=== PATIENT | male | born 1970 | race Caucasian/White ===

== ENCOUNTER 2018-09-08 14:40 | Outpatient (RCR) | payer BC ==
[2018-11-02] MEDS ORDERED: ASPI-586 PO (08:44)
[2018-11-02] MEDS ORDERED: OMEP40CA36 PO (08:44)
[2018-11-02] MEDS ORDERED: METO-387 PO (08:44)
== END 2018-12-07 | disposition home or self-care (01) ==
LOC: CARD 14:40
PROVIDERS: ATTEND Internal Medicine Interventional Cardiology
DX: I47.2 Ventricular tachycardia (principal); R00.2 Palpitations; I10 Essential (primary) hypertension; I49.3 Ventricular premature depolarization; R42 Dizziness and giddiness; N17.9 Acute kidney failure, unspecified
CPT/HCPCS: 93270

== ENCOUNTER → 2018-10-12 | Outpatient (CLI) | payer BC ==
[~2018-10-12] VITALS: Ht 182.9 cm; Wt 97.5 kg
[~2018-10-12] MED LIST: CATHETER FLUSH 10 ML SYR IV PRN; REGADENOSON 0.4 MG/5 ML SYR (LEXISCAN) IV ONE
[2018-10-12 09:11] VITALS: BP 134/91
[2018-10-12 09:12] VITALS: BP 146/96
[2018-10-12 09:13] VITALS: BP 140/101
--- NOTE | 2018-10-12 13:51 | Cardiology Stress Test Report ---
Stress Test Report Type of NM Stress Test: Test Type: LEXISCAN 0.4MG/5ML Date of Procedure/Referring: Date of Procedure: Oct 12, 2018 PCP Gayathri Ling MD Admitting Physician Sánchez Monique DO Indications: Ventricular tachycardia, palpitations, hypertension Baseline Heart Rate: 67 Baseline Blood Pressure: Blood Pressure Systolic: 140 Blood Pressure Diastolic: 101 Baseline EKG: Baseline EKG: sinus rhythm Summary & Conclusion: Summary: The patient was brought to the stress lab after informed consent was taken. Stress test was performed according to the Lexiscan protocol. 0.4 mg of IV Lexiscan was given. Low-grade exercise was performed. Baseline EKG showed sinus rhythm at 67 BPM. Initial blood pressure was 126/84 mmHg. Maximum heart rate was 90 bpm and blood pressure 144/96 mmHg. Patient did not have any chest pain, arrhythmias or ST segment changes during the stress test. 10.94 mCi of Myoview were given for rest imaging and 32.2 mCi of Myoview given for stress imaging. Transient ischemic dilatation score 1.1, EF 59 percent. Normal wall motion. Medium intensity, intermediate size anterior reversible defect. SSS 6, SRS 0, SDS 6. Conclusion: Pharmacological stress test was negative for ischemia. Normal LV function with no wall motion abnormalities. Anterior ischemia, coronary angiography is recommended. Gayathri LING MD Oct 12, 2018 1:51 pm
== END ==
LOC: CARD 08:04
PROVIDERS: ATTEND Internal Medicine Interventional Cardiology
DX: I47.2 Ventricular tachycardia (principal); R00.2 Palpitations; I10 Essential (primary) hypertension; I49.3 Ventricular premature depolarization; R42 Dizziness and giddiness; N17.9 Acute kidney failure, unspecified
CPT/HCPCS: 78452; 93017

== ENCOUNTER → 2018-10-17 | Outpatient (CLI) | payer BC | LOC: CARD 13:51 | PROVIDERS: ATTEND Internal Medicine Interventional Cardiology | DX: I47.2 Ventricular tachycardia (principal); R00.2 Palpitations; I10 Essential (primary) hypertension; I49.3 Ventricular premature depolarization; R42 Dizziness and giddiness; N17.9 Acute kidney failure, unspecified ==

== ENCOUNTER 2018-11-02 07:53 | Day surgery (SDC) | payer BC ==
[2018-11-02] VITALS (8 sets, daily range): BP systolic 114–141; BP diastolic 71–92
[~2018-11-02] VITALS: Ht 182.9 cm; Wt 99.8 kg
[2018-11-02] MEDS ORDERED: NS IV 1000 ML 1,000 ML ONE (08:08)
[2018-11-02] MEDS ORDERED: HEParin (CATH LAB) 2,000 ML IV ONE (08:08)
[2018-11-02] MEDS ORDERED: LIDOCAINE 1% INJ 20 ML 20 ML VIAL ONE (08:08)
[2018-11-02] MEDS ORDERED: NS IV 1000 ML 1,000 ML IV SCH ×2 (08:15→10:41)
[2018-11-02 08:36] LABS: HEMOGLOBIN 16.9 G/DL (13.3-17.7); MEAN PLATELET VOLUME 10.6 FL (7.4-10.4)
[2018-11-02] MEDS ORDERED: METO-387 PO (08:44)
[2018-11-02] MEDS ORDERED: ASPI-586 PO (08:44)
[2018-11-02] MEDS ORDERED: OMEP40CA36 PO (08:44)
[2018-11-02 08:46] LABS: INR 0.9 (0.8-1.4); PROTHROMBIN TIME PATIENT 12.9 SEC (12.2-14.7)
[2018-11-02 08:52] LABS: ALANINE AMINOTRANSFERASE 50 U/L (0-55); ALBUMIN 4.3 GM/DL (3.2-4.5); ALKALINE PHOSPHATASE 46 U/L (40-136); BILIRUBIN,TOTAL 0.9 MG/DL (0.1-1.0); BUN/CREATININE RATIO 18; CALCIUM 9.7 MG/DL (8.5-10.1); CARBON DIOXIDE 26 MMOL/L (21-32); CHLORIDE 108 MMOL/L (98-107); CREATININE SERUM 1.08 MG/DL (0.60-1.30); GFR ESTIMATED > 60; GLUCOSE 106 MG/DL (70-105); SODIUM 145 MMOL/L (135-145); TOTAL PROTEIN 7.6 GM/DL (6.4-8.2)
[2018-11-02] MEDS ORDERED: fentaNYL INJECTION 100 MCG/2 ML AMP ONE (09:30)
[2018-11-02] MEDS ORDERED: MIDAZOLAM 5 MG/5 ML (VERSED) VIAL ONE (09:30)
[2018-11-02] MEDS ORDERED: NITRO DRIP 25000 MCG/D5W 250 ML IV ONE (09:32)
[2018-11-02] MEDS ORDERED: HEParin 1000 UNIT/ML (10ML VIAL) FOR BOLUS ONE (09:32)
[2018-11-02] MEDS ORDERED: VERAPAMIL 5 MG/2 ML (CALAN) VIAL IV ONE (09:33)
--- NOTE | 2018-11-02 10:21 | Cardiac Procedure Note-CS/ASA ---
Pre-Procedure Note Pre-Op Procedure Note H&P Reviewed The H&P was reviewed, patient examined and no changes noted. Date H&P Reviewed: Nov 02, 2018 Time H&P Reviewed: 10:21 Conscious Sedation Pre-Proced Time 10:21 ASA Score 3 For ASA 3 and 4: Consider anesthesia and medical clearance. Also, for patients with a history of failed moderate sedation consider anesthesia. Airway Lungs Heart ASA score ASA 1: a normal healthy patient ASA 2: a patient with a mild systemic disease (mid diabetes, controlled hypertension, obesity ASA 3: a patient with a severe systemic disease that limits activity (angina , COPD, prior Myocardial infarction) ASA 4: a patient with an incapacitating disease that is a constant threat to life (CHF, renal failure) ASA 5: a moribund patient not expected to survive 24 hrs. (ruptured aneurysm) ASA 6: a declared brain- patient whose organs are being harvested. For emergent operations, add the letter E after the classification Mallampati Classification Grade 1 Sedation Plan Analgesia, Amnesia, Plan communicated to team members, Discussed options with patient/fam, Discussed risks with patient/fam The patient is an appropriate candidate to undergo the planned procedure, sedation, and anesthesia. The patient immediately re-assessed prior to indication. Gayathri BAL MD Nov 02, 2018 10:21 am
--- NOTE | 2018-11-02 10:41 | Coronary Angiography Report ---
Coronary Angiography Report DATE OF PROCEDURE: 11/02/18 INDICATION: Chest pain, abnormal nuclear stress test. PREOPERATIVE DIAGNOSIS: Chest pain, abnormal nuclear stress test. POSTOPERATIVE DIAGNOSIS: Patent epicardial coronary arteries. HISTORY: This is a 47-year-old gentleman with chest pain and a nuclear stress test which showed possible anterior ischemia. Therefore, the patient was scheduled for coronary angiography. PROCEDURES PERFORMED: 1.Coronary angiography. 2.Left heart catheterization. COMPLICATIONS: None. SPECIMENS: None. ESTIMATED BLOOD LOSS: 10 mL ANESTHESIA: Conscious sedation ANTICOAGULATION: IV heparin CONTRAST: 66 mL. FLUOROSCOPY: 4.9 minutes. FLOUROSCOPY DOSE: 447 mgy. PROCEDURE DETAILS: The patient is a 47 male and was brought to the lab clerk after informed consent was taken. All the risks and complications were explained in detail; this included the risk of bleeding, vascular damage, stroke , ME and even . The patient was draped and prepped in the usual sterile fashion. Access was gained in the right radial artery with a 6 Swazi sheath. Coronary angiography and left heart catheterization was performed with the Warne catheter. FINDINGS: 1.Left main: Patent. 2.LAD: Patent. Mild slow flow noted. 3.Left circumflex artery: Patent. Mild slow flow noted. 4.RCA: Patent. 5.Left heart catheterization: LV pressure 121/21 mmHg. LVEDP 35 mmHg. Aortic pressure 129/95 mmHg. Normal LV function with no wall motion abnormalities. CONCLUSIONS: Patent epicardial coronary arteries. Mild slow flow noted in the left coronary systems suggesting endothelial dysfunction. Elevated LVEDP suggest diastolic dysfunction. Berenice Ling MD, FACP, FACC, [facility] Interventional Cardiology Gayathri LING MD Nov 02, 2018 10:41
--- NOTE | 2018-11-02 10:44 | Cardiology Discharge Summary ---
Diagnosis/Chief Complaint Date of Admission 11/02/2018 Date of Discharge 11/02/2018 Admission Diagnosis Chest pain, abnormal nuclear stress test. Final/Discharge Diagnosis Patent epicardial coronary arteries. Diastolic dysfunction. Chief Complaint/HPI Chief Complaint/HPI This is a 47-year-old gentleman with chest pain and a nuclear stress test which showed possible anterior ischemia. Therefore, the patient was scheduled for coronary angiography. Discharge Summary Procedures Coronary angiography showed patent epicardial coronary arteries. Mild slow flow noted which is likely secondary to endothelial dysfunction. Elevated LVEDP suggest diastolic dysfunction. Discharge Physical Examination Normal. Hospital Course Was the Problem List Reviewed?: Yes Unremarkable. Pending Labs Laboratory Tests 11/02/18 08:27: White Blood Count 7.0, Red Blood Count 5.60, Hemoglobin 16.9, Hematocrit 50, Mean Corpuscular Volume 89, Mean Corpuscular Hemoglobin 30, Mean Corpuscular Hemoglobin Concent 34, Red Cell Distribution Width 13.0, Platelet Count 209, Mean Platelet Volume 10.6, Prothrombin Time 12.9, INR Comment 0.9, Activated Partial Thromboplast Time 27, Sodium Level 145, Potassium Level 4.0, Chloride Level 108, Carbon Dioxide Level 26, Anion Gap 11, Blood Urea Nitrogen 19, Creatinine 1.08, Estimat Glomerular Filtration Rate > 60, BUN/Creatinine Ratio 18, Glucose Level 106, Calcium Level 9.7, Corrected Calcium 9.5, Total Bilirubin 0.9, Aspartate Amino Transf (AST/SGOT) 33, Alanine Aminotransferase ( ALT/SGPT) 50, Alkaline Phosphatase 46, Total Protein 7.6, Albumin 4.3 Discussion & Recommendations Discussion Discussed with the patient. Follow up appt.: Follow-up at previously suggested appointment. Dicharge Diet: Regular Diet Activity as Tolerated: Yes Home Medications Reviewed patient Home Medication Reconciliation performed by pharmacy medication reconciliations copier field service technician and/or nursing. Patients Allergies have been reviewed. Discharge Home Medications: Reviewed and agree with Discharge Medication list on patient's Discharge Instruction sheet Condition at discharge Stable. Instructions to patient/family Discussed. Gayathri BAL MD Nov 02, 2018 10:44
[2018-11-02] MEDS ORDERED: PATIENT MAY USE OWN MEDS, ALL PO SCH (10:45)
--- NOTE | 2018-11-02 10:45 | Discharge Inst-Post CATH ---
Discharge Inst-CATH/EP Post Cardiac Cath/EP D/C Inst Follow Up/Plan Dr. Ling on previously given appointment. <b>CARDIAC CATH/EP PROCEDURE DISCHARGE INSTRUCTIONS</b> Cardiac Rehab Please be expecting a follow up call from Cardiac Rehab within in one week. ACTIVITY * Go Home directly and rest. * Limit activity of the leg (or wrist if it was used) for 7 days including aerobics, swimming, jogging, bicycling, etc. * Restrict stair-climbing for 7 days if possible, if not, climb up with your non -cath leg, then bring together on the same step. * Avoid lifting, pushing, pulling or excessive movement of the affected extremity for 7 days. * Customary sexual activity may be resumed after 2 days-use caution not to use a position that strains or causes pain to the affected extremity. * No driving for 24 hours. * NO SMOKING. * Avoid straining for bowel movements for 7 days. * Gentle walking on level ground is allowed. * Returning to work will depend on the type of procedure and the results. Your doctor will discuss this with you. CALL YOUR DOCTOR FOR ANY OF THE FOLLOWING: *If bleeding from the puncture site occurs- Apply gentle pressure to site with clean cloth and call your doctor or EMS. * If a knot or lump forms under the skin, increases in size, or causes pain. * If bruising appears to be worsening or moving further down your leg instead of disappearing. * Temperature above 101 F. CARE OF YOUR GROIN INCISION; * Bruising or purple discoloration of the skin near the puncture site is common. * You may shower only, no bathtub bathing for 5 days. Be careful to avoid slipping as your leg may feel stiff. * If a closure device was used on your femoral artery, please see the attached guide regarding care of the device and your leg. * Leave dressing on FOR 24 hours. CARE OF YOUR WRIST INCISION; * Bruising or purple discoloration of the skin near the puncture site is common. * You may shower. * DO NOT submerge wrist. * Leave dressing on FOR 24 hours. Gayathri LING MD Nov 02, 2018 10:45
== END 2018-11-02 14:00 | disposition home or self-care (01) ==
LOC: CATH 07:53
PROVIDERS: ATTEND Internal Medicine Interventional Cardiology
DX: R07.9 Chest pain, unspecified (principal); R94.39 Abnormal result of other cardiovascular function study; I10 Essential (primary) hypertension; I49.3 Ventricular premature depolarization; R00.2 Palpitations; F17.220 Nicotine dependence, chewing tobacco, uncomplicated; Z79.82 Long term (current) use of aspirin; Z79.899 Other long term (current) drug therapy
CPT/HCPCS: 36415; 80053; 85027; 85610; 85730; 87081; 93458

== ENCOUNTER 2018-12-25 05:38 | Outpatient (CLI) | payer BC ==
[~2018-12-25] VITALS: Ht 182.9 cm; Wt 99.8 kg
[~2018-12-25 05:38] MED LIST changes: +ASPI-586 PO; -CATHETER FLUSH 10 ML SYR IV PRN; +METO-387 PO; +OMEP40CA36 PO; -REGADENOSON 0.4 MG/5 ML SYR (LEXISCAN) IV ONE
== END 2018-12-25 10:16 | disposition home or self-care (01) ==
LOC: PREOP 05:38
PROVIDERS: ATTEND Surgery
DX: Z01.818 Encounter for other preprocedural examination (principal)